=== PATIENT | male | born 1965 | race Two or more races ===

== ENCOUNTER 2019-09-07 23:02 | Emergency (ER) | payer SELFPAY ==
[~2019-09-07] VITALS: Ht 165.1 cm; Wt 79.4 kg
[2019-09-07 23:23] LABS: BASO % 1 % (0-3); EOS # 0.2 x10^3/uL (0.0-0.7); EOS % 3 % (0-3); HEMATOCRIT 45.1 % (39.0-53.0); HEMOGLOBIN 15.2 g/dL (13.0-17.5); LYMPH # 2.7 x10^3/uL (1.0-4.8); LYMPH % 43 % (24-48); MEAN CORPUSCULAR HEMOGLOBIN 31 pg (25-35); MEAN CORPUSCULAR HGB CONC 34 g/dL (31-37); MEAN CORPUSCULAR VOLUME 92 fL (79-100); MONO # 0.7 x10^3/uL (0.0-1.1); MONO % 12 % (0-9); NEUT # 2.7 x10^3/uL (1.8-7.7); NEUT % 42 % (31-73); PLATELET COUNT 231 x10^3/uL (140-400); RED BLOOD COUNT 4.89 x10^6/uL (4.30-5.70); RED CELL DISTRIBUTION WIDTH 13.3 % (11.5-14.5); WHITE BLOOD COUNT 6.3 x10^3/uL (4.0-11.0)
[2019-09-07] MEDS ORDERED: NITROGLYCERIN SUBLINGUAL 0.4 MG BOTTLE OF 25. SL PRN (23:30)
[2019-09-07 23:33] LABS: CALCIUM 8.9 mg/dL (8.5-10.1); CREATININE 1.1 mg/dL (0.7-1.3); GFR 69.2; POTASSIUM 3.6 mmol/L (3.5-5.1)
[2019-09-07 23:39] LABS: ALBUMIN 3.9 g/dL (3.4-5.0); MAGNESIUM 2.2 mg/dL (1.8-2.4); TOTAL BILIRUBIN 0.4 mg/dL (0.2-1.0); TOTAL PROTEIN 7.9 g/dL (6.4-8.2)
--- NOTE | 2019-09-07 23:41 | RAD ---
EXAM: Chest, single view. HISTORY: Chest pain. COMPARISON: None. FINDINGS: A frontal view of the chest is obtained. There is no infiltrate, pleural effusion or pneumothorax. The heart is normal in size. IMPRESSION: No acute pulmonary finding. Electronically signed by: Beth Alfaro MD (09/07/2019 11:38 PM) [facility]
[2019-09-07] MEDS ORDERED: ASPIRIN CHEWABLE 81 MG TABLET. PO ONE (23:45)
--- NOTE | 2019-09-07 23:51 | PHYS DOC ---
Past Medical History Past Medical History: No Pertinent History Past Surgical History: Other Additional Past Surgical Histo: RIGHT ANKLE SURGERY Alcohol Use: None Drug Use: None Critical Care Time Critical care time was [] minutes exclusive of procedures. The HEART Score for CP Pts HEART Score for Chest Pain: HEART Score for Chest Pain Response (Comments) Value History Slighlty/Non-Suspicious 0 ECG Normal 0 Age >45 - < 65 1 Risk Factors 1 or 2 Risk Factors 1 Troponin < Normal Limit 0 Total 2 Risk Factors: Risk Factors: DM, Current or recent (<one month) smoker, HTN, HLP, family history of CAD, obesity. Risk Scores: Score 0 - 3: 2.5% MACE over next 6 weeks - Discharge Home Score 4 - 6: 20.3% MACE over next 6 weeks - Admit for Clinical Observation Score 7 - 10: 72.7% MACE over next 6 weeks - Early Invasive Strategies Adult General Chief Complaint Chief Complaint: CHEST PAIN [facility] HPI 54-year-old male presents to the emergency Department complaints of chest pain starting approximately1 hour ago. States he was not doing any particular activity at the time. Describes as sharp sensation center aspect of his chest with no evidence of radiation. He states the pain is been off and on. Denies any nausea, vomiting, diaphoresis. Patient has no underlying medical history, no tobacco or drug use. No family history of CAD according to the patient. Blood pressure is elevated 159/94 upon initial evaluation. He is currently pain-free at this time. Review of Systems Review of Systems Constitutional: Denies fever or chills [] Respiratory: Denies cough or shortness of breath [] Cardiovascular: No additional information not addressed in HPI [] GI: Denies abdominal pain, nausea, vomiting, bloody stools or diarrhea [] : Denies dysuria or hematuria [] Musculoskeletal: Denies back pain or joint pain [] Integument: Denies rash or skin lesions [] Neurologic: Denies headache, focal weakness or sensory changes [] All other systems were reviewed and found to be within normal limits, except as documented in this note. Current Medications Current Medications Current Medications Medications (Trade) Dose Ordered Sig/Armando Start Time Stop Time Status Last Admin Dose Admin Aspirin (Children'S Aspirin) 324 mg 1X ONCE 09/07/19 23:45 09/07/19 23:46 DC 09/07/19 23:27 324 MG Nitroglycerin (Nitrostat) 0.4 mg PRN Q5MIN PRN 09/07/19 23:30 09/08/19 23:29 09/07/19 23:28 0.4 MG Allergies Allergies Allergies Coded Allergies Type Severity Reaction Last Updated Verified No Known Drug Allergies 09/07/19 No Physical Exam Physical Exam Constitutional: Well developed, well nourished, no acute distress, non-toxic appearance. [] HENT: Normocephalic, atraumatic, bilateral external ears normal, oropharynx moist, no oral exudates, nose normal. [] Eyes: PERRLA, EOMI, conjunctiva normal, no discharge. [] Cardiovascular:Heart rate regular rhythm, no murmur [] Lungs & Thorax: Bilateral breath sounds clear to auscultation [] Abdomen: Bowel sounds normal, soft, no tenderness, no masses, no pulsatile masses. [] Skin: Warm, dry, no erythema, no rash. [] Back: No tenderness, no CVA tenderness. [] Extremities: No tenderness, no edema. [] Neurologic: Alert and oriented X 3, no focal deficits noted. [] Psychologic: Affect normal, judgement normal, mood normal. [] Current Patient Data Vital Signs Vital Signs Date Time Temp Pulse Resp B/P (MAP) Pulse Ox O2 Delivery O2 Flow Rate FiO2 09/07/19 23:28 68 159/94 09/07/19 23:02 98.0 18 100 Room Air 98.0 Lab Values Laboratory Tests Test 09/07/19 23:15 09/08/19 01:10 White Blood Count 6.3 x10^3/uL (4.0-11.0) Red Blood Count 4.89 x10^6/uL (4.30-5.70) Hemoglobin 15.2 g/dL (13.0-17.5) Hematocrit 45.1 % (39.0-53.0) Mean Corpuscular Volume 92 fL (79-100) Mean Corpuscular Hemoglobin 31 pg (25-35) Mean Corpuscular Hemoglobin Concent 34 g/dL (31-37) Red Cell Distribution Width 13.3 % (11.5-14.5) Platelet Count 231 x10^3/uL (140-400) Neutrophils (%) (Auto) 42 % (31-73) Lymphocytes (%) (Auto) 43 % (24-48) Monocytes (%) (Auto) 12 % (0-9) H Eosinophils (%) (Auto) 3 % (0-3) Basophils (%) (Auto) 1 % (0-3) Neutrophils # (Auto) 2.7 x10^3/uL (1.8-7.7) Lymphocytes # (Auto) 2.7 x10^3/uL (1.0-4.8) Monocytes # (Auto) 0.7 x10^3/uL (0.0-1.1) Eosinophils # (Auto) 0.2 x10^3/uL (0.0-0.7) Basophils # (Auto) 0.0 x10^3/uL (0.0-0.2) Sodium Level 138 mmol/L (136-145) Potassium Level 3.6 mmol/L (3.5-5.1) Chloride Level 99 mmol/L (98-107) Carbon Dioxide Level 31 mmol/L (21-32) Anion Gap 8 (6-14) Blood Urea Nitrogen 16 mg/dL (8-26) Creatinine 1.1 mg/dL (0.7-1.3) Estimated GFR (Cockcroft-Gault) 69.2 BUN/Creatinine Ratio 15 (6-20) Glucose Level 80 mg/dL (70-99) Calcium Level 8.9 mg/dL (8.5-10.1) Magnesium Level 2.2 mg/dL (1.8-2.4) Total Bilirubin 0.4 mg/dL (0.2-1.0) Aspartate Amino Transferase (AST) 21 U/L (15-37) Alanine Aminotransferase (ALT) 17 U/L (16-63) Alkaline Phosphatase 94 U/L (46-116) Troponin I Quantitative < 0.017 ng/mL (0.000-0.055) < 0.017 ng/mL (0.000-0.055) WZ-Nbf-N-Type Natriuretic Peptide 11 pg/mL (0-124) Total Protein 7.9 g/dL (6.4-8.2) Albumin 3.9 g/dL (3.4-5.0) Albumin/Globulin Ratio 1.0 (1.0-1.7) Laboratory Tests 09/07/19 23:15 Laboratory Tests 09/07/19 23:15 EKG EKG EKG reviewed, heart rate 63, normal sinus rhythm, left axis deviation. No evidence of acute ST elevation HI appreciated interpretation time 2310[] Radiology/Procedures Radiology/Procedures [facility] [address] [place] [address] IMAGING REPORT Signed PATIENT: CHENCHO ZELAYA ACCOUNT: [id number] : 1965 LOCATION: ER AGE: 54 SEX: M EXAM STATUS: PRE ER ORD. PHYSICIAN: SAUL LRAA MD REASON: Chest pain PROCEDURE: PORTABLE CHEST 1V EXAM: Chest, single view. HISTORY: Chest pain. COMPARISON: None. FINDINGS: A frontal view of the chest is obtained. There is no infiltrate, pleural effusion or pneumothorax. The heart is normal in size. IMPRESSION: No acute pulmonary finding. Electronically signed by: Beth Alfaro MD (09/07/2019 11:38 PM) [facility] [place] DICTATED and SIGNED BY: EBTH ALFARO MD DATE: 09/07/192337 [] Course & Med Decision Making Course & Med Decision Making Pertinent Labs and Imaging studies reviewed. (See chart for details) []54-year-old male presents to the emergency Department complaints of chest pain starting approximately1 hour ago. States he was not doing any particular activity at the time. Describes as sharp sensation center aspect of his chest with no evidence of radiation. He states the pain is been off and on. Denies any nausea, vomiting, diaphoresis. Patient has no underlying medical history, no tobacco or drug use. No family history of CAD according to the patient. Blood pressure is elevated 159/94 upon initial evaluation. He is currently pain-free at this time. Labs reviewed Trop negative x 2 Given HEART Score 2 and negative findings will plan for dc home Recommend follow up with PCP as outpatient Return precautions provided Dragon Disclaimer Dragon Disclaimer This electronic medical record was generated, in whole or in part, using a voice recognition dictation system. Departure Departure Impression: Primary Impression: Chest pain Disposition: 01 HOME, SELF-CARE Condition: IMPROVED Patient Instructions: Chest Pain (Nonspecific)-Brief Additional Instructions: Recommend follow up with PCP 3 - 5 days Return to the ER with worsening symptoms, intractable pain, fever, altered mental status Tylenol/Motrin as needed for pain Return to ER with recurrent chest pain Problem Qualifiers Primary Impression: Chest pain Chest pain type: unspecified Qualified Codes: R07.9 - Chest pain, unspecified SAUL LARA MD Sep 07, 2019 23:51
[2019-09-08 02:07] VITALS: BP 120/84
--- NOTE | 2019-09-08 06:24 | EKG ---
[facility] [address] [place] [address] Test Date: 2019-09-07 Test Time: 23:09:10 Pat Name: CHENCHO ZELAYA Department: Room: Gender: M Human Services Supervisor: : 1965 Requested By: SAUL LARA Order Number: [id number] Reading MD: Anil Verma Measurements Intervals [place] Rate: 63 P: 8 ID: [id number] QRS: -43 QRSD: 86 T: 10 QT: 362 QTc: 373 Interpretive Statements SINUS RHYTHM ABNORMAL LEFT AXIS DEVIATION LEFT ANTERIOR FASCICULAR BLOCK Electronically Signed On 09-09-2019 14:33:19 ENDOCRINOLOGIST by Anil Verma
== END 2019-09-08 02:25 | disposition home or self-care (01) ==
LOC: ER 23:02
DX: R07.89 Other chest pain (principal)
CPT/HCPCS: 36415; 71045; 80053; 83735; 83880; 84484; 85025; 93005; 99285-25